=== PATIENT | male | born 1945 | race Caucasian/White ===

== ENCOUNTER 2021-03-27 13:47 | Inpatient (IN) | payer MEDICARE ==
[2021-03-27 14:06] VITALS: BMI 32.5
[2021-03-27] MEDS ORDERED: Acetaminophen 650 MG Suppository PR PRN (14:26)
[2021-03-27] MEDS ORDERED: Ondansetron ODT 4 MG TAB PO PRN (14:26)
[2021-03-27] MEDS ORDERED: Acetaminophen 325 MG TAB PO PRN (14:26)
[2021-03-27] MEDS ORDERED: Ondansetron PF 4 MG/2 ML Vial IVP PRN (14:26)
[2021-03-27] MEDS ORDERED: Morphine 4 MG/ML VIAL SLOW IVP PRN (14:52)
[2021-03-27 15:03] LABS: Hemoglobin 12.4 g/dL (13.5-17.5); Mean Corpuscular HGB CONC 31.6 g/dL (32.0-36.0); Mean Corpuscular Hemoglobin 24.3 pg (27.0-33.0); Mean Corpuscular Volume 76.7 fl (81.2-95.1); Mean Platelet Volume 10.3 fl (7.4-10.4); Platelet Count 371 10x3/uL (150-450); RBC Distribution Width 15.2 % (11.5-14.5); Red Blood Cell (RBC) Count 5.11 10x6/uL (4.32-5.72); White Blood Cell (WBC) Count 19.6 10x3/uL (3.5-10.5)
[2021-03-27 15:12] LABS: Bilirubin Neg (Negative); Blood, Urine 150 (Negative); Clarity Clear (Clear); Glucose, Urine (Dipstick) Normal (Negative); Ketone, Urine 5 mg/dL (Negative); Leukocyte Negative (Negative); Nitrite Negative (Negative); Protein, Urine (Dipstick) Negative (Neg-Trace); Urobilinogen Normal mg/dL (Less than 2)
[2021-03-27 15:13] LABS: Urine Culture Reflex No No
[2021-03-27 15:15] LABS: Lactic Acid 1.2 mmol/L (0.5-2.2)
[2021-03-27 15:22] LABS: ALT (SGPT) 12 U/L (8-55); AST (SGOT) 19 U/L (5-34); Albumin 3.5 g/dL (3.4-4.8); Alkaline Phosphatase 85 U/L (40-110); Anion Gap 12 mmol/L (10-20); BUN (Urea Nitrogen) 11 mg/dL (8.4-25.7); Bilirubin, Total 0.6 mg/dL (0.2-1.2); Calc. Creatinine Clearance 90 mL/min (70-130); Calcium 8.4 mg/dL (7.8-10.44); Carbon Dioxide 27 mmol/L (23-31); Chloride 100 mmol/L (98-107); Glucose 93 mg/dL (83-110); Protein, Total 5.5 g/dL (5.8-8.1); Sodium 135 mmol/L (136-145)
[2021-03-27 15:28] LABS: Troponin I Less than 0.010 ng/mL (< 0.028)
[2021-03-27 15:30] LABS: WBC/HPF 0-3 HPF (0-3)
[2021-03-27 15:31] LABS: Bacteria/HPF Rare-Few HPF (None Seen); Squamous Epithelial 0-3 HPF (0-3)
[2021-03-27] MEDS ORDERED: PROPOFOL 20 ML ONE (15:40)
[2021-03-27] MEDS: cefTRIAXone\\ROCEPHIN 1 GM in Sodium Chloride 0.9% 100 ML IVPB SCH (15:45)
[2021-03-27] MEDS: Sodium Chloride 0.9% 1,000 ML IV SCH ×2 (15:45→23:47)
[2021-03-27] MEDS ORDERED: Iopamidol 15 ML ONE (15:51)
[2021-03-27] MEDS ORDERED: Hyoscyamine Sulfate SL 0.125 mg Tablet PO PRN (16:13)
[2021-03-27 17:06] LABS: Lymphocytes 3 % (21-51); Monocytes 17 % (0-10)
[2021-03-27 17:07] LABS: Anisocytosis SLIGHT = 6-15 cells (100X) (0-5/hpf); MDiff Complete? YES; Microcytosis SLIGHT = 6-15 cells (100X) (0-5/hpf); Neutrophil 80 % (42-75)
[2021-03-27 17:08] LABS: Hypochromia SLIGHT = 6-15 cells (100X) (0-5/hpf); Large Platelets SLIGHT; Platelet Morphology Comment Appears Adequate; Polychromasia SLIGHT = 2-3 cells (100X) (0-2/hpf); Stomatocytes SLIGHT = 2-5 cells (100X) (0-1/hpf)
[2021-03-27] MEDS: Ibuprofen 600 MG TAB PO SCH (21:42)
[2021-03-27] MEDS: Tamsulosin HCl 0.4 MG CAP PO SCH (21:43)
[2021-03-28 04:23] LABS: Anion Gap 12 mmol/L (10-20); BUN (Urea Nitrogen) 12 mg/dL (8.4-25.7); Calc. Creatinine Clearance 90 mL/min (70-130); Calcium 8.2 mg/dL (7.8-10.44); Carbon Dioxide 24 mmol/L (23-31); Chloride 106 mmol/L (98-107); Glucose 104 mg/dL (83-110); Potassium 4.1 mmol/L (3.5-5.1); Sodium 138 mmol/L (136-145)
[2021-03-28 04:34] LABS: Hemoglobin 11.7 g/dL (13.5-17.5); Mean Corpuscular HGB CONC 30.5 g/dL (32.0-36.0); Mean Corpuscular Hemoglobin 23.5 pg (27.0-33.0); Mean Corpuscular Volume 77.3 fl (81.2-95.1); Mean Platelet Volume 10.8 fl (7.4-10.4); Platelet Count 360 10x3/uL (150-450); RBC Distribution Width 15.6 % (11.5-14.5); Red Blood Cell (RBC) Count 4.97 10x6/uL (4.32-5.72); White Blood Cell (WBC) Count 15.7 10x3/uL (3.5-10.5)
[2021-03-28] MEDS: Ibuprofen 600 MG TAB PO SCH ×3 (05:30→20:51)
[2021-03-28] MEDS: Sodium Chloride 0.9% 1,000 ML IV SCH ×3 (05:30→22:50)
[2021-03-28 05:48] LABS: MDiff Complete? YES
[2021-03-28 05:52] LABS: Lymphocytes 4 % (21-51); Monocytes 12 % (0-10); Neutrophil 84 % (42-75)
[2021-03-28 05:54] LABS: Platelet Morphology Comment Appears Adequate; RBC Morphology Normal
[2021-03-28] MEDS: cefTRIAXone\\ROCEPHIN 1 GM in Sodium Chloride 0.9% 100 ML IVPB SCH (13:57)
[2021-03-28] MEDS: Tamsulosin HCl 0.4 MG CAP PO SCH (20:52)
[2021-03-29 04:56] LABS: Anion Gap 9 mmol/L (10-20); BUN (Urea Nitrogen) 16 mg/dL (8.4-25.7); Calc. Creatinine Clearance 101 mL/min (70-130); Calcium 8.1 mg/dL (7.8-10.44); Carbon Dioxide 26 mmol/L (23-31); Chloride 111 mmol/L (98-107); Glucose 111 mg/dL (83-110); Potassium 4.2 mmol/L (3.5-5.1); Sodium 142 mmol/L (136-145)
[2021-03-29 05:07] LABS: Hemoglobin 11.1 g/dL (13.5-17.5); Mean Corpuscular HGB CONC 30.1 g/dL (32.0-36.0); Mean Corpuscular Hemoglobin 23.5 pg (27.0-33.0); Mean Platelet Volume 10.9 fl (7.4-10.4); Platelet Count 305 10x3/uL (150-450); RBC Distribution Width 15.8 % (11.5-14.5); Red Blood Cell (RBC) Count 4.73 10x6/uL (4.32-5.72); White Blood Cell (WBC) Count 9.5 10x3/uL (3.5-10.5)
[2021-03-29] MEDS: Ibuprofen 600 MG TAB PO SCH ×4 (05:46→19:53)
[2021-03-29] MEDS: Sodium Chloride 0.9% 1,000 ML IV SCH ×2 (05:47→14:39)
[2021-03-29 07:21] LABS: MDiff Complete? YES
[2021-03-29 08:00] LABS: Eosinophils 6 % (0-10); Lymphocytes 8 % (21-51); Monocytes 19 % (0-10); Neutrophil 64 % (42-75); Platelet Morphology Comment Appears Adequate; Reactive Lymphocytes 3 % (0-10)
[2021-03-29 08:02] LABS: RBC Morphology Normal
[2021-03-29] MEDS: cefTRIAXone\\ROCEPHIN 1 GM in Sodium Chloride 0.9% 100 ML IVPB SCH (14:38)
[2021-03-29] MEDS: Tamsulosin HCl 0.4 MG CAP PO SCH (19:53)
[2021-03-29 22:55] VITALS: BP 141/78; TEMP 97.7
== END 2021-03-29 20:35 | disposition home or self-care (01) | DRG 853 ==
LOC: CSHTELE 13:47 → OBSVTOIN 13:47
PROVIDERS: ADMIT Hospitalist; ATTEND Hospitalist
PROC: 0T768DZ Dilation of Right Ureter with Intraluminal Device, Via Natural or Artificial Opening Endoscopic (ICD-10-PCS; principal; 2021-03-27)
PROC: BT1D1ZZ Fluoroscopy of Right Kidney, Ureter and Bladder using Low Osmolar Contrast (ICD-10-PCS; 2021-03-27)
PROC: 8E0ZXY6 Isolation (ICD-10-PCS; 2021-03-27)
DX: A41.9 Sepsis, unspecified organism (principal); U07.1 COVID-19; N13.6 Pyonephrosis; Z79.82 Long term (current) use of aspirin; Z79.899 Other long term (current) drug therapy
CPT/HCPCS: 36415; 71045; 80048; 80053; 81001; 83605; 84484; 85025; 87086; 94760; C2625; J0696; J2270; J2704; J3490; J7050; Q9967